=== PATIENT | male | born 1950 | race Caucasian/White ===

== ENCOUNTER 2023-04-04 11:17 | Emergency (ER) | payer MEDICARE, SELFPAY ==
[2023-04-04] VITALS (7 sets, daily range): BP systolic 151–199; BP diastolic 83–98; PULSE 64–69; RESP 13–21; TEMP 35.8; O2SAT 94–99; BMI 37.2
--- NOTE | 2023-04-04 11:39 | RAD_ITS ---
INDICATION: chest pain EXAMINATION/TECHNIQUE: X-RAY - XR Chest 1 View COMPARISON: 05/19/2014. FINDINGS: LINES/DEVICES: None. LUNGS: No consolidation, edema or effusion. No pneumothorax. MEDIASTINUM AND CARDIOVASCULAR STRUCTURES: Cardiac silhouette not enlarged. Central airways and mediastinal contour are unremarkable. BONES AND SOFT TISSUES: Unremarkable. RAD/Chest 1 View (Portable) IMPRESSION: No radiographic evidence of acute cardiopulmonary disease. Electronically Signed: Jim Painter MD at 12:49 EDT ,
--- NOTE | 2023-04-04 11:40 | EDS_ITS ---
HPI History of Present Illness Chief Complaint: Shortness of Breath Narrative Narrative: 72-year-old male past medical history of hypertension, hyperlipidemia, presents with longstanding shortness of breath and dyspnea on exertion that he has had for weeks to months. He states he was seen by his primary care provider on Monday and was told that he had EKG changes since 2018 that are new. His relates history that his enzymes were also elevated. They report that he is scheduled for a stress test next month, but they thought he needed to be evaluated sooner for his increasing dyspnea on exertion and shortness of breath. He denies any orthopnea but states that the other day he was doing weed whacking and was trying to walk inside, but became very short of breath. He thought that it had something to do with the heat. No new leg swelling, no other symptoms. They report that they wanted him to come to the emergency department yesterday evening, but he wanted to wait until today. PFSH PFSH Home Medications fenofibrate micronized 134 mg capsule 130 mg PO DAILY 05/14/14 [History Last Taken Unknown] losartan 100 mg-hydrochlorothiazide 25 mg tablet 1 tab PO DAILY 05/14/14 [Hist ory Last Taken Unknown] meloxicam 15 mg tablet 7.5 - 15 mg PO DAILY PRN Pain 05/14/14 [History Last Taken Unknown] docusate sodium 100 mg capsule (DOK) 100 mg PO BID PRN PRN Constipation ##60 05/20/14 [Rx Last Taken Unknown] oxycodone 5 mg tablet 10 mg (2 x 5 mg) PO Q4H PRN PRN Pain ##20 05/20/14 [Rx Last Taken Unknown] pantoprazole 20 mg tablet,delayed release 20 mg PO BID ##60 05/20/14 [Rx Last Taken Unknown] psyllium husk (aspartame) 3.4 gram oral powder packet (Metamucil Fiber Singles) 1 packet PO DAILY #30 packets 05/20/14 [Rx Last Taken Unknown] Allergy/AdvReac Type Severity Reaction Status Date / Time No Known Allergies Allergy Verified 04/04/23 11:20 Surgical History Hx of cholecystectomy Social History Smoking Status: Former smoker ROS ROS ED ROS Narrative Constitutional: No fever, no chills. Reported EKG changes since 2018. HEENT: No sore throat. No neck pain. No loss of vision. No rhinorrhea. Cardiovascular: No chest pain. No palpitations. No pedal edema. Respiratory: No cough, positive dyspnea on exertion and shortness of breath. Abdominal: No abdominal pain. No nausea. No vomiting. Genitourinary: No dysuria. No hematuria. Musculoskeletal: No myalgias. No arthralgias. Neurologic: No headaches. No dizziness. No lightheadedness. Skin: No rash. No change in color. Psychiatric: No depression. No anxiety. EXAM Physical Exam Narrative Exam Narrative: Afebrile. Vital signs noted. HEENT: Normocephalic. Atraumatic. PERRL, EOMI. Neck soft and supple. No point tenderness or step off. Cardiovascular: Regular rate and rhythm. No murmurs, rubs, or gallops appreciated. Respiratory: No tachypnea. Lungs clear to auscultation bilaterally. Gastrointestinal: Abdomen soft, nontender, with normoactive bowel sounds. No rebound or guarding. Neurological: Awake. Alert. Nonfocal, nonlateralizing. Skin: No rash. Normal color. No pallor. Musculoskeletal: No pedal edema. Full range of motion extremities. Const Vital Signs: 04/04/23 11:17 04/04/23 11:32 04/04/23 12:03 Temperature 96.5 F L Temperature Source Temporal Pulse Rate 66 Respiratory Rate 18 Respiratory Effort Short of Breath Respiratory Depth Normal Respiratory Pattern Normal Blood Pressure 199/98 H Blood Pressure Mean 131 Pulse Ox 99 96 Oxygen Delivery Method Room Air Room Air Room Air 04/04/23 12:15 04/04/23 13:07 Temperature Temperature Source Pulse Rate 69 64 Respiratory Rate 18 13 Respiratory Effort Respiratory Depth Respiratory Pattern Blood Pressure 151/89 H 152/83 H Blood Pressure Mean 109 106 Pulse Ox 97 94 Oxygen Delivery Method Room Air Room Air MDM MDM MDM Narrative Medical decision making narrative: Comprehensive work-up was pursued. Concern would be for the EKG changes and elevated enzymes. I reviewed his prior records and lab results. EKG was obtained and interpreted by myself independently as normal sinus rhythm at 65 bpm without ectopy or acute ST changes. He does have minimal ST depression across the precordium, approximately 1 mm or less, but no STEMI. I reviewed his laboratory work and he has normal white count of 6.1, hemoglobin normal at 15.8, hematocrit 45.2, platelet count normal at 286. Electrolyte panel is grossly unremarkable with a sodium normal at 140, potassium 4.0, chloride 104 BUN slightly elevated at 20 which I think is nonspecific and creatinine 1.25. Glucose is appropriately elevated at 100 with a normal anion gap of 7. Initial troponin is 58, and repeat is 57. I feel this is his baseline. BNP is normal at 20.7. Chest x-ray in 1 view interpreted by myself independently shows no acute process, no pneumonia or pneumothorax. I do not feel antibiotics are indicated. Patient is resting comfortably. He is explaining that he is having more dyspnea on exertion and cannot walk as quickly as he used to. His pulse ox is 98% on room air during examination. I do not feel that he requires observation at this time. He feels well and would like to be discharged. He and his state that they have a stress test set up for him next month. I feel he can be discharged to follow-up. Return instructions to the emergency department were reviewed. Disposition is discharged home in stable condition. History & Record Review Discussion w/independent historian: Patient and Family Additional record(s) reviewed:: Prior outpatient record, Prior ED visit and Prior labs Lab Data Attestation: I reviewed the patient's lab results. Labs: Laboratory Results - last 24 hr 04/04/23 04/04/23 11:50 13:58 WBC 6.1 RBC 4.84 Hgb 15.8 Hct 45.2 MCV 93.4 MCH 32.6 H MCHC 35.0 RDW Std Deviation 39.7 RDW Coeff of Jose R 11.6 Plt Count 286 MPV 9.9 Immature Gran % (Auto) 0.300 Neut % (Auto) 52.1 Lymph % (Auto) 34.0 [place] % (Auto) 10.4 H Eos % (Auto) 2.5 Baso % (Auto) 0.7 Absolute Neuts (auto) 3.2 Absolute Lymphs (auto) 2.06 Nucleated RBC % 0 Sodium 140 Potassium 4.0 Chloride 104 Carbon Dioxide 29.0 Anion Gap 7 BUN 20 H Creatinine 1.25 Estim Creat Clear Calc 46.04 Est GFR (MDRD) Af Amer 73 Est GFR (MDRD) Non-Af 61 BUN/Creatinine Ratio 16.0 Glucose 100 Calcium 8.8 Troponin I High Sens 58 57 B-Natriuretic Peptide 20.7 Radiography Diagnostic Testing: Clinical Impression(s) from Imaging Studies Chest X-Ray 04/04/23 11:39 IMPRESSION: No radiographic evidence of acute cardiopulmonary disease. Electronically Signed: Jim Painter MD at 12:49 EDT , Discharge Plan Triage Chief Complaint: Shortness of Breath ED Provider: Cory Torres Dx/Rx/DC Orders Clinical Impression: Dyspnea on exertion, SOB (shortness of breath), Nonspecific ST-T wave electrocardiographic changes Instructions: Shortness of Breath Coping, ED Dyspnea Prescriptions: No Action meloxicam 15 MG tablet 7.5 - 15 mg PO DAILY PRN (Reason: Pain) Patient Comments: TAKE 1/2 TO 1 TABLET PER DAY WITH FOOD NEEDED FOR PAIN fenofibrate micronized 130 MG capsule 130 mg PO DAILY Patient Comments: cholesterol losartan-hydrochlorothiazide 1 EACH tablet 1 tab PO DAILY Patient Comments: blood pressure pantoprazole 20 MG tablet 20 mg PO BID Qty: 60 0RF Patient Comments: acid reflux oxycodone 5 MG tablet 10 mg PO Q4H PRN PRN (Reason: Pain) Qty: 20 0RF Patient Comments: pain docusate sodium [DOK] 100 MG capsule 100 mg PO BID PRN PRN (Reason: Constipation) Qty: 60 0RF Patient Comments: constipation Rx Instructions: psyllium husk (aspartame) [Metamucil Fiber Singles] 1 PACKET powder in packet 1 packet PO DAILY Qty: 30 0RF Patient Comments: bowels Primary Care Provider: Caitlyn Xavier Referrals: Caitlyn Xavier MD [Primary Care Provider] - 3-5 Days Disposition Disposition: Home, Self Care
[2023-04-04] MEDS: Aspirin 81 MG TAB.CHEW 324 MG PO (12:04)
[2023-04-04 12:06] LABS: Absolute Lymphocyte Count 2.06 X10^3/uL (0.83-4.51); Absolute Neutrophil Count 3.2 X10^3/uL (2.0-7.7); Basophil# 0.04 X10^3/uL; Basophil% 0.7 % (0-1); Eosinophil# 0.15 X10^3/uL; Eosinophils% 2.5 % (0-5); Hematocrit 45.2 % (40-54); Hemoglobin 15.8 g/dL (13.0-16.5); Lymphocyte # 2.06 X10^3/ul (0.83-4.51); Mean Corpuscular Hgb 32.6 pg (27.0-32.0); Mean Corpuscular Volume 93.4 fL (80-94); Mean Platelet Vol. 9.9 fl (6.2-12.0); Monocyte# 0.63 X10^3/uL; Monocyte% 10.4 % (0-10); NRBC Flagged by Analyzer 0 % (0-5); Neutrophil # 3.16 X10^3/uL (2.7-7.7); Neutrophil % 52.1 % (47-70); Platelet Count 286 K/mm3 (150-450); RBC Distribution Width CV 11.6 % (11.6-14.6); RBC Distribution Width SD 39.7 fl (35.1-43.9); Red Blood Count 4.84 M/mm3 (4.6-6.2); White Blood Count 6.1 K/mm3 (4.4-11.0)
[2023-04-04 12:29] LABS: BNP,B-Type NATRIURETIC PEPTIDE 20.7 pg/mL (0-100)
[2023-04-04 12:43] LABS: Anion Gap 7 (5-15); BUN 20 mg/dL (7-18); Calcium,Total 8.8 mg/dL (8.5-10.1); Chloride 104 mmol/L (98-107); Creatinine, Serum 1.25 mg/dL (0.70-1.30); EST Glomerular Filtration Rate 61 mL/min (>60); Est Glom Filt Rate - Afr Amer 73 mL/min (>60); Estimated Creatinine Clearance 46.04 ml/min; Glucose 100 mg/dL (74-106); Sodium Level 140 mmol/L (136-145); Troponin-I HS (w/2H Reflex) 58 pg/mL (3.0-78.0)
[2023-04-04 13:56] LABS: Reflex Troponin-HS? (from REC) Y
[2023-04-04 14:19] LABS: Troponin-I HS 57 pg/mL (3.0-78.0)
== END 2023-04-04 14:55 | disposition home or self-care (01) ==
PROVIDERS: Emergency Provider Emergency Medicine; PCP Internal Medicine; Visit Provider Emergency Medicine
DX: R06.02 Shortness of breath (principal); Z87.891 Personal history of nicotine dependence
CPT/HCPCS: 71045; 80048; 83880; 84484; 85025; 93005; 99285; A4216